=== PATIENT | male | born 1940 | race Caucasian/White ===

== ENCOUNTER 2016-09-04 14:20 | Emergency (ER) | payer MEDICARE, OTHER ==
[~2016-09-04] VITALS: Ht 193 cm; Wt 105.0 kg
[2016-09-04 14:21] VITALS: BP 116/70; PULSE 76; RESP 20; TEMP 97.9; O2SAT 96
--- NOTE | 2016-09-04 14:57 | PD ---
Physical Exam Date Seen by Provider: Sep 04, 2016 Time Seen by Provider: 14:54 Narrative 75 yr old male here with c/o left pinky finger pain and deformity after having sustained a fall. He says his legs gave out on him because he was carrying 6 dogs back and forth to his car. He denies any chest pain, sob, syncope, headache or head injury. He has a left pinky finger deformity. He admits to pain 9/10 localized to the affected area. He has no other complaints. He is awaiting bed placement. Data Data Last Documented VS Vital Signs Date Time Temp Pulse Resp B/P Pulse Ox O2 Delivery O2 Flow Rate FiO2 09/04/16 14:21 97.9 76 20 116/70 96 Room Air [facility] Medical Record Reviewed: Yes Supervised Visit with OLGA: No Condition: Stable Anneliese Boles Sep 04, 2016 14:57
--- NOTE | 2016-09-04 15:38 | RADRPT ---
EXAM DATE/TIME: 09/04/2016 15:17 [facility] COMPARISON: No previous studies available for comparison. INDICATIONS : Patient fell on hand this morning while walking. Patient states that he has no previous injuries to franc lemus. MEDICAL HISTORY : None. SURGICAL HISTORY : None. ENCOUNTER: Initial ACUITY: 1 day PAIN SCORE: 9/10 LOCATION: Left distal Finger. FINDINGS: There is complete dislocation of the fifth PIP joint with overriding. CONCLUSION: Complete fifth PIP dislocation. Edith Lindsey MD on September 04, 2016 at 15:36 Board Certified Radiologist. This report was verified electronically.
[2016-09-04] MEDS ORDERED: SODIUM CHLORIDE 0.9% FLUSH 10 ML FLUSH IVF PRN (17:00)
[2016-09-04] MEDS ORDERED: BUPIVACAINE HCL PF 0.5% 10 ML VIAL INFIL ONE (17:00)
[2016-09-04 17:30] VITALS: BP 110/68; PULSE 76; RESP 24; TEMP 97.5; O2SAT 98
[2016-09-04 17:45] LABS: AUTOMATED NEUTROPHIL # 4.9 TH/MM3 (1.8-7.7); BASOPHIL % 0.4 % (0.0-2.0); EOSINOPHIL # 0.1 TH/MM3 (0-0.4); HEMATOCRIT 41.5 % (39.0-51.0); HEMO FLAGS DIFF FINAL; LYMPH % 11.7 % (9.0-44.0); LYMPHOCYTE # 0.7 TH/MM3 (1.0-4.8); MEAN CELL VOLUME 93.6 FL (80.0-100.0); MEAN CORPUSCULAR HEMOGLOBIN 32.3 PG (27.0-34.0); MEAN CORPUSCULAR HGB CONC 34.5 % (32.0-36.0); MONO % 8.8 % (0.0-8.0); NEUT % 78.1 % (16.0-70.0); PLATELET COUNT 167 TH/MM3 (150-450); RED BLOOD COUNT 4.43 MIL/MM3 (4.50-5.90); RED CELL DISTRIBUTION WIDTH 16.2 % (11.6-17.2); WHITE BLOOD COUNT 6.2 TH/MM3 (4.0-11.0)
[2016-09-04] MEDS ORDERED: LURA40 PO (17:57)
[2016-09-04] MEDS ORDERED: BUPR150CR PO (17:57)
[2016-09-04] MEDS ORDERED: SOTA120T PO (17:57)
[2016-09-04] MEDS ORDERED: PROS5TAB PO (17:57)
[2016-09-04] MEDS ORDERED: FURO1TAB60 PO (17:57)
[2016-09-04] MEDS ORDERED: FURO1TAB61 PO (17:57)
[2016-09-04] MEDS ORDERED: BENA40TA PO (17:57)
[2016-09-04] MEDS ORDERED: POTA-243 PO (17:57)
[2016-09-04] MEDS ORDERED: LAMI200T PO (17:57)
[2016-09-04] MEDS ORDERED: CART180C3 PO (17:59)
[2016-09-04 18:04] LABS: ALT (GPT) 23 U/L (12-78); ANION GAP 9 MEQ/L (5-15); AST (GOT) 23 U/L (15-37); BICARBONATE 25.5 MEQ/L (21.0-32.0); BLOOD UREA NITROGEN 16 MG/DL (7-18); CHLORIDE 106 MEQ/L (98-107); GLOMERULAR FILTRATION RATE 70 ML/MIN (>89); MAGNESIUM 2.3 MG/DL (1.5-2.5); SODIUM (NA) 140 MEQ/L (136-145)
[2016-09-04 18:07] LABS: ALKALINE PHOSPHATASE 131 U/L (45-117); CREATINE KINASE 193 U/L (39-308); TOTAL BILIRUBIN ADULT 0.6 MG/DL (0.2-1.0)
[2016-09-04 18:20] LABS: CKMB 5.2 NG/ML (0.5-3.6)
[2016-09-04 18:25] VITALS: BP 151/85; PULSE 81; RESP 16; O2SAT 99
--- NOTE | 2016-09-04 18:25 | PD ---
HPI Chief Complaint: Musculoskeletal Complaint Time Seen by Provider: 17:00 Travel History International Travel<30 days: No Contact w/Intl Traveler<30days: No Traveled to known affect area: No History of Present Illness HPI Patient is a 75-year-old male presenting to emergency evaluation of left fifth finger pain. Patient states he was carrying small dogs to his car, he was on his fourth trip and his legs gave out causing him to fall. He denies any chest pain, shortness of breath, weakness or dizziness prior to the fall. He denies any other complaints this time. PFSH Past Medical History Hx Anticoagulant Therapy: No Cancer: Yes (THROAT) Cardiac Catheterization: Yes Cardiovascular Problems: Yes (3 STENTS, PACEMAKER, AICD) Chemotherapy: Yes (1999) Diabetes: Yes (METFORMIN 09) Patient Takes Glucophage: Yes Diminished Hearing: No Musculoskeletal: Yes (CHRONIC BACK PAIN) Myocardial Infarction: Yes Tetanus Vaccination: < 5 Years Past Surgical History AICD: Yes Body Medical Devices: PACEMAKER Cardiac Surgery: Yes (PACEMAKER/AICD) Coronary Stent: Yes Joint Replacement: Yes (Left knee) Pacemaker: Yes (BIOTRONICS) Social History Alcohol Use: No Tobacco Use: No Substance Use: No Allergies-Medications (Allergen,Severity, Reaction): Coded Allergies: No Known Allergies (Unverified , 09/04/16) Reported Meds & Prescriptions Reported Meds & Active Scripts Active Reported Cartia Xt (Diltiazem HCl) 180 Mg Cap.er.24h 180 Mg PO BID Klor-Con 10 (Potassium Chloride) 10 Meq Tab 80 Meq PO BID Wellbutrin SR 12 HR (Bupropion HCl) 150 Mg Tab 150 Mg PO DAILY Latuda (Lurasidone) 40 Mg Tab 40 Mg PO DAILY Lamictal (Lamotrigine) 200 Mg Tab 200 Mg PO BID Proscar (Finasteride) 5 Mg Tab 5 Mg PO DAILY Do not crush. Sotalol (Sotalol HCl) 120 Mg Tab 120 Mg PO TID Lasix (Furosemide) 40 Mg Tab 40 Mg PO HS Lasix (Furosemide) 80 Mg Tab 80 Mg PO DAILY IN THE MORNING Benazepril (Benazepril HCl) 40 Mg Tab 40 Mg PO DAILY Review of Systems Except as stated in HPI: all other systems reviewed are Neg Musculoskeletal: Positive: Pain, Other (formate to left fifth finger) Physical Exam Narrative GENERAL: Well developed, well-nourished, elderly male. Resting comfortably in no acute distress. SKIN: Warm and dry. HEAD: Atraumatic. Normocephalic. EYES: Pupils equal and round. No scleral icterus. No injection or drainage. ENT: No nasal bleeding or discharge. Mucous membranes pink and moist. NECK: Trachea midline. No JVD. CARDIOVASCULAR: Regular rate and rhythm. RESPIRATORY: No accessory muscle use. Clear to auscultation. Breath sounds equal bilaterally. GASTROINTESTINAL: Abdomen soft, non-tender, nondistended. Hepatic and splenic margins not palpable. MUSCULOSKELETAL: Extremities without clubbing, cyanosis, or edema. Lateral deformity to left fifth finger. Edema and ecchymosis noted to the joint and left fifth finger. NEUROLOGICAL: Awake and alert. No obvious cranial nerve deficits. Motor grossly within normal limits. Five out of 5 muscle strength in the arms and legs. Normal speech. PSYCHIATRIC: Appropriate mood and affect; insight and judgment normal. Data Data Last Documented VS Vital Signs Date Time Temp Pulse Resp B/P Pulse Ox O2 Delivery O2 Flow Rate FiO2 09/04/16 18:25 81 16 151/85 99 09/04/16 17:30 97.5 Room Air Orders Finger ([id number]) (09/04/16 14:57) Electrocardiogram (09/04/16 16:55) Complete Blood Count With Diff (09/04/16 16:55) Comprehensive Metabolic Panel (09/04/16 16:55) Magnesium (Mg) (09/04/16 16:55) Ckmb (Isoenzyme) Profile (09/04/16 16:55) Troponin I (09/04/16 16:55) Urinalysis - C+S If Indicated (09/04/16 16:55) Ecg Monitoring (09/04/16 16:55) Iv Access Insert/Monitor (09/04/16 16:55) Oximetry (09/04/16 16:55) Sodium Chloride 0.9% Flush (Ns Flush) (09/04/16 17:00) Bupivacaine Pf 0.5% Inj (Marcaine Pf 0.5 (09/04/16 17:00) CKMB (09/04/16 17:20) CKMB% (09/04/16 17:20) Finger ([id number]) (09/04/16 ) Labs Laboratory Tests Test 09/04/16 09/04/16 17:20 18:40 White Blood Count 6.2 TH/MM3 Red Blood Count 4.43 MIL/MM3 Hemoglobin 14.3 GM/DL Hematocrit 41.5 % Mean Corpuscular Volume 93.6 FL Mean Corpuscular Hemoglobin 32.3 PG Mean Corpuscular Hemoglobin 34.5 % Concent Red Cell Distribution Width 16.2 % Platelet Count 167 TH/MM3 Mean Platelet Volume 8.6 FL Neutrophils (%) (Auto) 78.1 % Lymphocytes (%) (Auto) 11.7 % Monocytes (%) (Auto) 8.8 % Eosinophils (%) (Auto) 1.0 % Basophils (%) (Auto) 0.4 % Neutrophils # (Auto) 4.9 TH/MM3 Lymphocytes # (Auto) 0.7 TH/MM3 Monocytes # (Auto) 0.5 TH/MM3 Eosinophils # (Auto) 0.1 TH/MM3 Basophils # (Auto) 0.0 TH/MM3 CBC Comment DIFF FINAL Differential Comment Sodium Level 140 MEQ/L Potassium Level 4.0 MEQ/L Chloride Level 106 MEQ/L Carbon Dioxide Level 25.5 MEQ/L Anion Gap 9 MEQ/L Blood Urea Nitrogen 16 MG/DL Creatinine 1.04 MG/DL Estimat Glomerular Filtration 70 ML/MIN Rate Random Glucose 76 MG/DL Calcium Level 9.1 MG/DL Magnesium Level 2.3 MG/DL Total Bilirubin 0.6 MG/DL Aspartate Amino Transf 23 U/L (AST/SGOT) Alanine Aminotransferase 23 U/L (ALT/SGPT) Alkaline Phosphatase 131 U/L Total Creatine Kinase 193 U/L Creatine Kinase MB 5.2 NG/ML Troponin I 0.02 NG/ML Total Protein 7.0 GM/DL Albumin 3.8 GM/DL Urine Color YELLOW Urine Turbidity CLEAR Urine pH 5.0 Urine Specific [place] 1.015 Urine Protein NEG mg/dL Urine Glucose (UA) 300 mg/dL Urine Ketones NEG mg/dL Urine Occult Blood NEG Urine Nitrite NEG Urine Bilirubin NEG Urine Urobilinogen LESS THAN 2.0 MG/DL Urine Leukocyte Esterase NEG Urine WBC LESS THAN 1 /hpf Urine Hyaline Casts 21 /lpf Microscopic Urinalysis Comment CULT NOT INDICATED MDM Medical Decision Making Medical Screen Exam Complete: Yes Emergency Medical Condition: Yes Interpretation(s) Last Impressions Finger X-Ray 09/04/16 [id number] Signed Impressions: Service Date/Time: Sunday, September 04, 2016 15:17 - CONCLUSION: Complete fifth PIP dislocation. K. Eugene Lindsey MD Laboratory Tests Test 09/04/16 09/04/16 17:20 18:40 White Blood Count 6.2 TH/MM3 Red Blood Count 4.43 MIL/MM3 Hemoglobin 14.3 GM/DL Hematocrit 41.5 % Mean Corpuscular Volume 93.6 FL Mean Corpuscular Hemoglobin 32.3 PG Mean Corpuscular Hemoglobin 34.5 % Concent Red Cell Distribution Width 16.2 % Platelet Count 167 TH/MM3 Mean Platelet Volume 8.6 FL Neutrophils (%) (Auto) 78.1 % Lymphocytes (%) (Auto) 11.7 % Monocytes (%) (Auto) 8.8 % Eosinophils (%) (Auto) 1.0 % Basophils (%) (Auto) 0.4 % Neutrophils # (Auto) 4.9 TH/MM3 Lymphocytes # (Auto) 0.7 TH/MM3 Monocytes # (Auto) 0.5 TH/MM3 Eosinophils # (Auto) 0.1 TH/MM3 Basophils # (Auto) 0.0 TH/MM3 CBC Comment DIFF FINAL Differential Comment Sodium Level 140 MEQ/L Potassium Level 4.0 MEQ/L Chloride Level 106 MEQ/L Carbon Dioxide Level 25.5 MEQ/L Anion Gap 9 MEQ/L Blood Urea Nitrogen 16 MG/DL Creatinine 1.04 MG/DL Estimat Glomerular Filtration 70 ML/MIN Rate Random Glucose 76 MG/DL Calcium Level 9.1 MG/DL Magnesium Level 2.3 MG/DL Total Bilirubin 0.6 MG/DL Aspartate Amino Transf 23 U/L (AST/SGOT) Alanine Aminotransferase 23 U/L (ALT/SGPT) Alkaline Phosphatase 131 U/L Total Creatine Kinase 193 U/L Creatine Kinase MB 5.2 NG/ML Troponin I 0.02 NG/ML Total Protein 7.0 GM/DL Albumin 3.8 GM/DL Urine Color YELLOW Urine Turbidity CLEAR Urine pH 5.0 Urine Specific [place] 1.015 Urine Protein NEG mg/dL Urine Glucose (UA) 300 mg/dL Urine Ketones NEG mg/dL Urine Occult Blood NEG Urine Nitrite NEG Urine Bilirubin NEG Urine Urobilinogen LESS THAN 2.0 MG/DL Urine Leukocyte Esterase NEG Urine WBC LESS THAN 1 /hpf Urine Hyaline Casts 21 /lpf Microscopic Urinalysis Comment CULT NOT INDICATED Vital Signs Date Time Temp Pulse Resp B/P Pulse Ox O2 Delivery O2 Flow Rate FiO2 09/04/16 17:30 97.5 76 24 110/68 98 Room Air 09/04/16 14:21 97.9 76 20 116/70 96 Room Air Differential Diagnosis Arrhythmia versus metabolic abnormality versus mechanical fall versus other Narrative Course Patient is a 75-year-old male presenting to emergency evaluation of left fifth finger deformity. Patient had a mechanical fall after feeling his legs get weak. He denied any head injury or loss of consciousness, he denies any chest pain or dizziness prior to the episode. Due to patient's age and comorbidities , labs, imaging, EKG ordered. Initial x-ray of the left fifth finger shows a dislocation. A digital block was performed with 0.5% bupivacaine to the left fifth finger, after adequate anesthesia was obtained, patient's finger was reduced. Pt has brisk < 3 second capillary refill and full ROM at PIP joint. Repeat x-ray ordered. Repeat imaging shows reduction. Finger placed in a splint. Patient was encouraged to follow-up with his primary doctor. EKG shows atrial paced rhythm at a rate of 77 CBC is unremarkable, chemistry no acute findings, urinalysis is unremarkable. Patient will be discharged home, he is encouraged to maintain adequate fluid intake, rest, eat regular meals. Up with his primary doctor. He was encouraged to return to emergency department immediately for any new or worsening symptoms. Patient verbalized understanding of instructions. Patient is stable for discharge. Diagnosis Primary Impression: Dislocation of finger PIP joint Qualified Code: S63.289A - Dislocation of finger PIP joint, initial encounter Referrals: Hand Surgeon 1 week Primary Care Physician 3 days Patient Instructions: Finger Dislocation (ED), General Instructions Additional Instructions: Maintain adequate fluid intake Follow-up with your primary doctor Keep finger in splint, follow-up with hand surgeon Return to emergency department for any new or worsening symptoms Med/Other Pt SpecificInfo: No Change to Meds Disposition: 01 DISCHARGE HOME Condition: Stable Mili Hawk Sep 04, 2016 18:25
[2016-09-04 18:58] LABS: BLOOD, URINE NEG (NEG); COMMENT (UR) CULT NOT INDICATED; CULTURE IF INDICATED CULT NOT INDICATED; GLUCOSE,URINE 300 mg/dL (NEG); HYALINE CAST, URINE 21 /lpf (RARE); KETONE, URINE NEG (NEG); NITRITE,URINE NEG (NEG); URINE COLOR YELLOW (YELLW/STRAW)
--- NOTE | 2016-09-04 19:34 | RADRPT ---
EXAM DATE/TIME: 09/04/2016 18:59 [facility] COMPARISON: FINGER LEFT 5TH DIGIT ([id number]), September 04, 2016, 15:17. INDICATIONS : Post reduction of the fifth digit on Left Hand MEDICAL HISTORY : None. SURGICAL HISTORY : None. ENCOUNTER: Subsequent ACUITY: 1 day PAIN SCORE: 5/10 LOCATION: Left upper extremity FINDINGS: Previously seen fifth PIP joint dislocation has been reduced. No definite fracture is seen. CONCLUSION: Reduction of previously seen dislocation. Edith Lindsey MD on September 04, 2016 at 19:31 Board Certified Radiologist. This report was verified electronically.
--- NOTE | 2016-09-05 12:34 | EKG ---
Date Performed: 09/04/2016 Time Performed: 17:27:08 PTAGE: 75 years EKG: ELECTRONIC ATRIAL PACEMAKER LEFT ANTERIOR FASCICULAR BLOCK NONSPECIFIC T-WAVE ABNORMALITY A BNORMAL ECG NO PREVIOUS TRACING DOCTOR: Marquise Lainez Interpretating Date/Time 09/05/2016 12:32:43
== END 2016-09-04 20:09 | disposition home or self-care (01) ==
LOC: NEPD 14:20
DX: S63.287A Dislocation of proximal interphalangeal joint of left little finger, initial encounter (principal); W01.0XXA Fall on same level from slipping, tripping and stumbling without subsequent striking against object, initial encounter; Y93.89 Activity, other specified; E11.9 Type 2 diabetes mellitus without complications; Z79.84 Long term (current) use of oral hypoglycemic drugs; Z79.899 Other long term (current) drug therapy
CPT/HCPCS: 26770; 73140; 80053; 81001; 82550; 82552; 83735; 84484; 85025; 93005